=== PATIENT | female | born 1995 | race American Indian/Alaskan Native ===

== ENCOUNTER 2018-05-18 20:36 | Inpatient (IN) | payer MEDICAID ==
[2018-05-18] MEDS ORDERED: XYLOCAINE 2% INFILTRATI ONE (21:42)
[2018-05-18] MEDS ORDERED: BRETHINE SUB-Q PRN (21:42)
[2018-05-18] MEDS ORDERED: AMPICILLIN/NS 2 GM/100 ML 2 GM/100 ML BAG IV ONE (21:42)
[2018-05-18] MEDS ORDERED: SUBLIMAZE IV PRN (21:42)
[2018-05-18] MEDS ORDERED: PITOCin/NS 20 UNIT/1000ML DRIP 20 UNITS/1,000 ML BAG IV SCH (22:00)
[2018-05-18] MEDS ORDERED: PITOCin/NS 30 UNIT/500ML 30 UNITS/500 ML BAG IV SCH (22:00)
--- NOTE | 2018-05-18 22:49 | History and Physical Report ---
History of Present Illness Date of examination: 05/18/18 Date of admission: 05/18/18 20:36 Chief complaint: Leaking of clear fluid from vagina since 1:50 PM today. History of present illness: 23 year old at 38 5/7 weeks gestation presented to L&D reporting of leaking clear fluid from vagina since 1:50 PM today. Patient denies vaginal bleeding. She reports mild irregular contractions. Patient reports active movement. Patient received care from [facility] and records are available. LMP 07/21/17. EDC 05/27/2018. 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 labs are as follows: O negative, antibody screen negative, rubella immune, RPR nonreactive, hepatitis B surface antigen negative, HIV negative, varicella immune, HSV 2 negative, GC negative, CT negative, quad screen negative, GBS positive, diabetes screen 71. 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 denies: diabetes, hypertension, stroke, cancer Social history: , full code. denies: smoking, alcohol abuse, prescription drug abuse, IV drug use - Obstetrical History Expected Date of Delivery: 05/27/18 Actual Gestation: 38 Week(s) 5 Day(s) : 1 Para: 0 Hx # Term Pregnancies: 1 Number of Pregnancies: 0 Spontaneous Abortions: 0 Induced : 0 Number of Living Children: 0 Medications and Allergies Allergies Allergy/AdvReac Type Severity Reaction Status Date / Time No Known Allergies Allergy Verified 05/18/18 21:53 Home Medications Medication Instructions Recorded Confirmed Last Taken Type No Known Home Medications [No 05/18/18 05/18/18 Unknown History Reported Home Medications] Active Meds: Active Medications Ephedrine Sulfate (Ephedrine Sulfate) 10 mg IV Q2M PRN PRN Reason: Hypotension Ephedrine Sulfate (Ephedrine Sulfate) 10 mg IV Q2M PRN PRN Reason: Hypotension Fentanyl (Sublimaze) 100 mcg IV Q2H PRN PRN Reason: Labor Pain Ampicillin Sodium (Polycillin/Ns 2 Gm/100 Ml) 2 gm in 100 mls @ 100 mls/hr IV ONCE ONE; Protocol Stop: 05/18/18 22:41 Lactated Ringer's (Lactated Ringers) 1,000 mls @ 125 mls/hr IV DIRECT JONATHON Oxytocin/Sodium Chloride (Pitocin/Ns 20 Unit/1000ml Drip) 20 units in 1,000 mls @ 125 mls/hr IV DIRECT JONATHON Oxytocin/Sodium Chloride (Pitocin/Ns 30 Unit/500ml) 30 units in 500 mls @ 0 mls/hr IV TITR JONATHON; Protocol Ampicillin Sodium (Ampicillin/Ns 1 Gm/50 Ml) 1 gm in 50 mls @ 100 mls/hr IV Q4H R JONATHON; Protocol Terbutaline Sulfate (Brethine) 0.25 mg SUB-Q ONCE PRN PRN Reason: Hyperstimulation/Hypertonicity Review of Systems All systems: negative (leaking of clear fluid from vagina since 1:50 pm today.) - Vital Signs Vital signs: Vital Signs Pulse BP 114 H 127/75 05/18/18 20:57 05/18/18 20:57 Temp Pulse Resp BP Pulse Ox 114 H 18 127/75 05/18/18 21:41 05/18/18 21:41 05/18/18 21:41 - Physical Exam Cardiovascular: Regular rate, Normal S1, Normal S2 Lungs: Positive: Clear to auscultation Abdomen: Positive: normal appearance, soft, normal bowel sounds. Negative: distention, tenderness, guarding, rigidity Genitourinary (Female): Positive: normal external genitalia, normal perenium. Negative: perineal/vulvar lesions Cervix: Positive: absent (clear fluid) Uterus: Positive: enlarged (size=dates) Anus/Rectum: Positive: normal perianal skin Extremities: Positive: normal Deep Tendon Reflex Grade: Normal but brisk +3 - Obstetrical FHR: category 1 Uterine Contraction Monitor Mode: External Cervical Dilatation: 2 Cervical Effacement Percentage: 70 station: -4 Uterine Contraction Pattern: Irregular Uterine Tone Measurement Phase: Resting Results All other labs normal. Assessment and Plan A: at 38 weeks, 5 days gestation. Spontaneous rupture of membranes. GBS positive. P: Admit. GBS prophylaxis. Pitocin cervical ripening and induction of labor.
[2018-05-18] MEDS: LACTATED RINGERS 1,000 ML IV SCH (23:08)
[2018-05-18 23:09] LABS: Hematocrit 34.5 % (30.3-42.9); Hemoglobin 10.9 gm/dl (10.1-14.3); Mean Corpuscular HGB Conc 32 % (30-34); Mean Corpuscular Volume 64 fl (79-97); Platelet Count 326 K/mm3 (140-440); Red Blood Count 5.41 M/mm3 (3.65-5.03); Red Cell Distribution Width 18.4 % (13.2-15.2)
[2018-05-19] MEDS ORDERED: AMBIEN PO PRN (00:13)
[2018-05-19] MEDS: AMPICILLIN/NS 1 GM/50 ML 1 GM/50 ML BAG IV SCH ×2 (07:39→12:00)
[2018-05-19] MEDS ORDERED: PITOCin/NS 30 UNIT/500ML 30 UNITS/500 ML BAG IV SCH (08:00)
[2018-05-19] MEDS ORDERED: TYLENOL PO PRN (08:07)
[2018-05-19] MEDS ORDERED: STADOL IV PRN (08:27)
--- NOTE | 2018-05-19 08:27 | Event Note ---
Date: 05/19/18 S: Feeling contractions O; VE /-2. arom forebag, FSE and IUPC placed, CAT I tracing. Pit at 2mu A: 38+ weeks, srom P; Pitocin augmentation Epidural if desires
[2018-05-19] MEDS ORDERED: NACL 0.9% 1000 ML 1,000 ML VG SCH (10:00)
[2018-05-19] MEDS: LACTATED RINGERS 1,000 ML IV SCH ×2 (12:32→13:34)
--- NOTE | 2018-05-19 13:43 | Anesthesia Consultation ---
Anesthesia Consult and Med Hx Date of service: 05/19/18 - Airway Anesthetic Teeth Evaluation: Good ROM Head & Neck: Adequate Mental/Hyoid Distance: Adequate Mallampati Class: Class II Intubation Access Assessment: Probably Good - Pulmonary Exam CTA: Yes - Cardiac Exam Cardiac Exam: RRR - Pre-Operative Health Status ASA Pre-Surgery Classification: ASA2 Proposed Anesthetic Plan: Epidural - Pulmonary Hx Asthma: No COPD: No Hx Pneumonia: No - Cardiovascular System Hx Hypertension: No - Central Nervous System Hx Seizures: No Hx Psychiatric Problems: No - Endocrine Hx Renal Disease: No Hx End Stage Renal Disease: No Hx Hypothyroidism: No Hx Hyperthyroidism: No - Hematic Hx Anemia: No Hx Sickle Cell Disease: No - Other Systems Hx Alcohol Use: No
[2018-05-19] MEDS ORDERED: NARCAN 2 MG/2 ML IV PRN (13:47)
--- NOTE | 2018-05-19 13:47 | Progress Note ---
Subjective Date of service: 05/19/18 Principal diagnosis: labor Interval history: Requested LE. Consent obtained and TO performed. L3-4 interspace identified and sterile prep and drape conducted. Times of procedure noted in the bedside nursing chart. CSE completed along with catheter with out event and pt verbalized relief as 8cc bolus was placed in epidural space. VS stable Objective - Constitutional Vitals: Vital Signs - 12hr 05/19/18 05/19/18 05/19/18 03:23 07:40 07:42 Temperature 97.0 F L Pulse Rate 87 85 Blood Pressure 106/57 110/59 O2 Sat by Pulse Oximetry 05/19/18 05/19/18 05/19/18 10:26 11:38 12:09 Temperature Pulse Rate 66 72 78 Blood Pressure 108/56 101/51 127/68 O2 Sat by Pulse Oximetry 05/19/18 05/19/18 05/19/18 12:39 13:32 13:36 Temperature Pulse Rate 75 83 99 H Blood Pressure 123/60 137/83 O2 Sat by Pulse 98 92 Oximetry 05/19/18 05/19/18 05/19/18 13:37 13:38 13:41 Temperature Pulse Rate 85 94 H 93 H Blood Pressure 106/58 108/63 O2 Sat by Pulse 98 Oximetry - Labs CBC & Chem 7: 05/18/18 23:00 Labs: Abnormal lab results 05/18/18 Range/Units 23:00 RBC 5.41 H (3.65-5.03) M/mm3 MCV 64 L (79-97) fl MCH 20 L (28-32) pg RDW 18.4 H (13.2-15.2) %
[2018-05-19] MEDS ORDERED: fentaNYL-BUPIV 2 MCG/ML-0.125% 200 MCG/100 ML BAG EPIDURAL SCH ×2 (14:00→16:00)
[2018-05-19] MEDS ORDERED: PEPCID IV ONE (14:18)
[2018-05-19] MEDS ORDERED: ANCEF/STERILE WATER 2 GM/20 ML IV ONE (14:18)
[2018-05-19] MEDS ORDERED: BICITRA ONE (14:19)
[2018-05-19] MEDS ORDERED: REGLAN ONE (14:19)
--- NOTE | 2018-05-19 14:22 | Event Note ---
Date: 05/19/18 O; Pit at 2 mu, after epidural placement, late decelerations noted with 3-4 UC's position changes with all decelerations, pitocin turned off, FHR down to 60's, stat called, pt moved to the OR A: Stat at 38 + weeks due to bradycardia P: To OR, Dr. Avendaño notified
[2018-05-19] MEDS ORDERED: XYLOCAINE MPF 2% ONE (14:30)
[2018-05-19] MEDS ORDERED: ANCEF/STERILE WATER 2 GM/20 ML 2 GM/20 ML SYRINGE IV ONE (14:31)
--- NOTE | 2018-05-19 15:02 | Operative Report ---
Operative Report Operative Report: Date of procedure: 05/19/2018 Pre-operative diagnosis: 1. Intrauterine at 38-6/7 weeks in labor 2 . Non-reassuring surveillance Post-operative diagnosis: Same Procedure name(s): Primary low transverse section Surgeon: Nba Avendaño MD Paint Booth Operator: None Anesthesia: Epidural anesthesia by Dr. Niño EBL: 400 mL Findings: A 2759 g female infant Apgars 8 at 1 minute and 9 at 5 minutes. Clear amniotic fluid. Normal uterus. Normal tubes and ovaries bilaterally. Procedure: After the patient was prepped and draped in usual sterile fashion, and after satisfactory level of epidural anesthesia was obtained, the skin knife was used to make a transverse skin incision. The incision was excised down to layer of the fascia, which was nicked in the midline and extended laterally using the Bovie cautery. The rectus muscles were dissected off the rectus fascia both superiorly and inferiorly. The rectus bellies in the midline, and the peritoneum was entered under direct visualization. The peritoneal incision was extended superiorly and inferiorly. A bladder flap was created and the bladder blade was then placed. The uterus was scored in a curvilinear linear fashion, entered in the midline revealing clear amniotic fluid. The infant's head was delivered onto the surgical field, and the oropharynx and nasopharynx were bulb suctioned. The rest of the 's body was delivered, cord was doubly clamped and cut and the infant was handed to the waiting respiratory team. Cord blood was then obtained. The placenta was manually removed from the uterus, and the uterus removed from its normal anatomical position. After gentle uterine lavage, the incision was inspected and found to be without extensions. It was then closed in 2 layers using 0 Vicryl suture in a running interlocking fashion, the second layer imbricating the first. After good hemostasis was achieved, copious amounts or irrigation was performed, and the gutters were suctioned free of blood and blood clots. Tisseel sealant was sprayed across the uterine incision. The uterus was then returned to its normal anatomical position, and after excellent hemostasis assured, the peritoneum was re-approximated using 3-0 Vicryl suture in a running interlocking fashion, and then the rectus muscles were re-approximated using 3-0 Vicryl suture in a [id number] configuration. The fascia was then re- approximated using 0 Vicryl suture in running interlocking fashion. The subcutaneous layer was made hemostatic using Bovie cautery, the Tisseel sealant was sprayed across the fascial incision and the skin edges re-approximated using 4-0 Vicryl suture in a sub-cuticular fashion. Patient tolerated the procedure well was transported to recovery in stable condition.
[2018-05-19] MEDS ORDERED: NORCO 5/325 PO PRN (15:05)
[2018-05-19] MEDS ORDERED: MILK OF MAGNESIA PO PRN (15:05)
[2018-05-19] MEDS ORDERED: TUCKS PAD TP PRN (15:05)
[2018-05-19] MEDS ORDERED: LANSINOH TP PRN (15:05)
[2018-05-19] MEDS ORDERED: PHENERGAN PR PRN ×2 (15:05→15:17)
[2018-05-19] MEDS ORDERED: SENOKOT PO PRN (15:05)
[2018-05-19] MEDS ORDERED: ZOFRAN IV PRN ×2 (15:05→15:17)
[2018-05-19] MEDS ORDERED: NARCAN 0.4 MG/1 ML IV PRN ×2 (15:05→15:17)
[2018-05-19] MEDS ORDERED: PHENERGAN PO PRN (15:17)
[2018-05-19] MEDS ORDERED: DILAUDID IV PRN (15:17)
[2018-05-19] MEDS ORDERED: D5LR 1,000 ML IV SCH (16:00)
[2018-05-19] MEDS ORDERED: SODIUM CHLORIDE FLUSH SYRINGE 10 ML IV NR (16:00)
[2018-05-19] MEDS ORDERED: PITOCin/NS 20 UNIT/1000ML DRIP 20 UNITS/1,000 ML BAG IV SCH (16:00)
[2018-05-19] MEDS: TORADOL IV PRN ×2 (16:11→21:32)
[2018-05-19] MEDS: ANCEF/NS 1 GM/50 ML 1 GM/50 ML BAG IV SCH ×2 (16:12→23:58)
[2018-05-20 01:42] LABS: Hematocrit 31.5 % (30.3-42.9); Hemoglobin 9.9 gm/dl (10.1-14.3)
[2018-05-20] MEDS: MYLICON PO PRN ×2 (02:53→10:20)
[2018-05-20] MEDS: TORADOL IV PRN (02:53)
[2018-05-20] MEDS: PERCOCET 5/325 PO PRN ×3 (06:00→22:00)
[2018-05-20] MEDS: IBUPROFEN PO PRN (10:20)
[2018-05-20] MEDS: PRENATAL VITAMIN PO SCH (10:20)
[2018-05-20] MEDS: FEOSOL PO SCH (10:20)
--- NOTE | 2018-05-20 10:43 | Progress Note ---
Assessment and Plan A: /postop day 1 S/P primary LTCS. Anemia. P: Encouraged ambulation. Iron supplementation. Subjective - Subjective Date of service: 05/20/18 Principal diagnosis: /postop day 1 S/P primary LTCS Interval history: /postop day 1 S/P primary LTCS. Doing well. Voiding without difficulty; passing gas. Ambulating well. Patient reports small amount of lochia. Patient denies headache, chest pain, cough, shortness of breath, dizziness, nausea or vomiting, leg pain, or heavy vaginal bleeding. Patient reports: appetite normal, voiding normally, flatus, ambulating normally, no dizzy ambulation, no nauseated : doing well Objective - Vital Signs Latest vital signs: Vital Signs Temp Pulse Resp BP BP Pulse Ox 05/20/18 08:00 98.7 F 82 16 121/79 05/20/18 04:10 98.2 F 72 18 114/50 05/20/18 00:00 99.3 F 79 18 115/66 05/19/18 20:05 98.4 F 77 18 104/68 99 05/19/18 17:29 97.5 F L 72 18 117/69 100 05/19/18 16:30 74 20 113/71 05/19/18 16:15 97.8 F 84 12 125/77 100 05/19/18 16:11 13 05/19/18 16:00 81 20 113/71 100 05/19/18 15:45 77 21 114/67 100 05/19/18 15:30 97.5 F L 74 21 111/61 99 05/19/18 15:25 75 17 105/62 100 05/19/18 15:20 74 20 105/59 98 05/19/18 15:15 74 20 102/61 99 05/19/18 15:13 96.5 F L 74 20 103/52 99 05/19/18 14:12 100 H 87 05/19/18 14:11 82 111/67 05/19/18 14:10 89 92 05/19/18 14:08 96 H 111/58 05/19/18 14:07 87 97 05/19/18 14:05 81 104/55 05/19/18 14:02 87 91/42 99 05/19/18 13:59 88 94/55 05/19/18 13:57 93 H 100 05/19/18 13:54 88 118/63 05/19/18 13:52 104 H 87 05/19/18 13:50 85 114/55 05/19/18 13:48 91 H 99 05/19/18 13:47 105 H 110/56 05/19/18 13:46 96 H 91 05/19/18 13:44 90 110/67 05/19/18 13:43 98 H 99 05/19/18 13:41 93 H 108/63 05/19/18 13:38 94 H 106/58 05/19/18 13:37 85 98 05/19/18 13:36 99 H 92 05/19/18 13:32 83 137/83 98 05/19/18 12:39 75 123/60 05/19/18 12:09 78 127/68 05/19/18 11:38 72 101/51 Intake and Output 05/19/18 05/20/18 05/20/18 23:59 07:59 15:59 Intake Total 590 360 300 Output Total 1500 1200 Balance -910 -840 300 Intake: IV 350 ANCEF/NS 1 GM/50 ML 1 gm 50 In 50 ml @ 100 mls/hr IV Q8H [facility] Rx#:[id number] Oral 240 360 Intake, Free Water 300 Output: Urine 1500 1200 Indwelling Catheter 1500 1200 Other: Total, Intake Amount 240 240 Total, Output Amount 1300 300 # Voids Indwelling Catheter 1 Void 1 - Exam Cardiovascular: Present: Regular rate, Normal S1, Normal S2 Lungs: Present: Clear to auscultation Abdomen: Present: normal appearance, soft. Absent: distention, tenderness, guarding, rigidity Uterus: Present: normal, firm, fundal height below umbilicus. Absent: bogginess, tenderness Extremities: Present: normal. Absent: tenderness Incision: Present: normal, dry, intact, dressed - Labs Labs: Abnormal lab results 05/20/18 Range/Units 01:16 Hgb 9.9 L (10.1-14.3) gm/dl
[2018-05-20] MEDS ORDERED: M-M-R II VACCINE SUB-Q ONE (15:06)
[2018-05-20] MEDS ORDERED: BOOSTRIX IM ONE (15:06)
[2018-05-21] MEDS: PERCOCET 5/325 PO PRN ×2 (07:24→13:34)
[2018-05-21] MEDS: FEOSOL PO SCH (10:00)
[2018-05-21] MEDS: PRENATAL VITAMIN PO SCH (10:00)
--- NOTE | 2018-05-21 12:23 | Progress Note ---
Assessment and Plan - Patient Problems (1) S/P primary low transverse Current Visit: Yes Status: Acute Plan to address problem: POD 2 - stable Continue routine postop orders Ambulation encouraged, as tolerated Discharge to home on 05/22/18 Follow up at [facility] in 1 week for incision check (2) Anemia in puerperium, baby delivered during current episode of care Current Visit: Yes Status: Acute Plan to address problem: Asymptomatic Continue iron therapy Subjective - Subjective Date of service: 05/21/18 Principal diagnosis: POD #2; s/p Primary LTCS Patient reports: appetite normal, voiding normally, pain well controlled, flatus, ambulating normally, no dizzy ambulation, no bowel movement Foster: doing well, nursing well Objective - Vital Signs Latest vital signs: Vital Signs Temp Pulse Resp BP BP Pulse Ox 05/21/18 08:02 98.8 F 93 H 18 131/84 99 05/21/18 00:00 98.0 F 88 18 109/61 05/20/18 17:25 98.3 F 75 18 116/79 05/20/18 16:40 98.8 F 78 18 132/78 Intake and Output 05/20/18 05/21/18 05/21/18 23:59 07:59 15:59 Intake Total 990 120 360 Output Total 1200 Balance -210 120 360 Intake: Oral 990 120 360 Output: Urine 1200 Void 1200 Other: Total, Intake Amount 240 120 240 Total, Output Amount 900 # Voids Void 1 1 - Exam Cardiovascular: Present: Regular rate Lungs: Present: Clear to auscultation Abdomen: Present: normal appearance, soft Vulva: both: normal Uterus: Present: normal, firm, fundal height below umbilicus Extremities: Present: normal Incision: Present: normal, dry, intact, dressed Comments: scant lochia
--- NOTE | 2018-05-21 12:24 | Discharge Summary ---
Providers - Providers Date of Admission: 05/18/18 20:36 Date of discharge: 05/22/18 Attending physician: ALIX SCHNEIDER MD Primary care physician: ALIX SCHNEIDER MD Hospitalization Reason for admission: rupture of membranes, IUP at term Delivery: Procedure: primary low transverse Episiotomy: none Laceration: none Incision: normal, dry, intact (steri strips in place) Other procedures: none complications: none Discharge diagnosis: IUP at term delivered baby: female Hospital course: Uncomplicated Condition at discharge: Stable Disposition: DE-01 TO HOME OR SELFCARE - Discharge Diagnoses (1) S/P primary low transverse Status: Acute (2) Anemia in puerperium, baby delivered during current episode of care Status: Acute Comment: Asymptomatic Continue iron therapy Plan - Discharge Medications Prescriptions: Ferrous Sulfate [Feosol 325 MG tab] 325 mg PO BID #60 tablet HYDROcodone/APAP 5-325 [Galax 5/325] 1 each PO Q6HR PRN #30 tablet PRN Reason: Pain Ibuprofen [Motrin] 800 mg PO Q8HR PRN #30 tablet PRN Reason: Moder Pain Unrelieved By Galax Pnv No.95/Ferrous Fum/Folic AC [Prenavite Tablet] 1 each PO DAILY #30 tablet - Provider Discharge Summary Activity: routine, no sex for 6 weeks, no heavy lifting 4 weeks, no strenuous exercise Diet: routine Instructions: routine Additional instructions: [] Smoking cessation referral if applicable(refer to patient education folder for contact #) [] Refer to [facility] Booklet Call your doctor immediately for: * Fever > 100.5 * Heavy vaginal bleeding ( >1 pad per hour) * Severe persistent headache * Shortness of breath * Reddened, hot, painful area to leg or breast * Drainage or odor from incision. * Keep incision clean and dry at all times and follow doctor's instructions regarding bathing/showering - Follow up plan Follow up: ALIX SCHNEIDER MD [Primary Care Provider] - 7 Days (Follow up at [facility] in 1 week for incision check)
[2018-05-21] MEDS: IBUPROFEN PO PRN (13:34)
[2018-05-21 17:03] VITALS: BP 127/74
== END 2018-05-21 18:20 | disposition home or self-care (01) | DRG 766 ==
LOC: LD 20:36 → OB 05-19 17:14
PROVIDERS: ADMIT Obstetrics & Gynecology; ATTEND Obstetrics & Gynecology
PROC: 10D00Z1 Extraction of Products of Conception, Low, Open Approach (ICD-10-PCS; principal; 2018-05-19)
PROC: 10H07YZ Insertion of Other Device into Products of Conception, Via Natural or Artificial Opening (ICD-10-PCS; 2018-05-19)
PROC: 3E033VJ Introduction of Other Hormone into Peripheral Vein, Percutaneous Approach (ICD-10-PCS; 2018-05-19)
PROC: 10907ZC Drainage of Amniotic Fluid, Therapeutic from Products of Conception, Via Natural or Artificial Opening (ICD-10-PCS; 2018-05-19)
PROC: 3E0334Z Introduction of Serum, Toxoid and Vaccine into Peripheral Vein, Percutaneous Approach (ICD-10-PCS; 2018-05-20)
PROC: 3E0234Z Introduction of Serum, Toxoid and Vaccine into Muscle, Percutaneous Approach (ICD-10-PCS; 2018-05-20)
DX: O99.824 Streptococcus B carrier state complicating childbirth (principal); O76 Abnormality in fetal heart rate and rhythm complicating labor and delivery; Z3A.38 38 weeks gestation of pregnancy; Z37.0 Single live birth; D63.8 Anemia in other chronic diseases classified elsewhere; D56.3 Thalassemia minor; O99.02 Anemia complicating childbirth; Z83.2 Family history of diseases of the blood and blood-forming organs and certain disorders involving the immune mechanism; O26.893 Other specified pregnancy related conditions, third trimester; Z67.41 Type O blood, Rh negative; Z23 Encounter for immunization
CPT/HCPCS: 36415; 85014; 85018; 85027; 85461; 86592; 86850; 86900; 86901; G0378; C9250; J0290; J0595; J0690; J1170; J1885; J2590; J2765; J2790; J7030; J7120; J7121